=== PATIENT | male | born 1975 ===

== ENCOUNTER 2022-01-22 13:07 | Day surgery (SDC) | payer BC, OTHER ==
[~2022-01-22] VITALS: Ht 177.8 cm; Wt 92.1 kg
[2022-01-22] VITALS (7 sets, daily range): BP systolic 98–139; BP diastolic 55–90
[2022-01-22] MEDS ORDERED: LACTATED RINGERS 1,000 ML IV ONE (13:20)
[2022-01-22] MEDS ORDERED: LACTATED RINGERS 1,000 ML IV STA (13:22)
[2022-01-22] MEDS ORDERED: PROPOFOL INJECTION 50 ML IV ONE (13:48)
[2022-01-22] MEDS ORDERED: MIDAZOLAM 2 MG/2 ML (VERSED) VIAL ONE (13:48)
--- NOTE | 2022-01-22 14:31 | Progress Note-Post Operative ---
Post-Operative Progess Note Surgeon (s)/Senior Advisor (s) Surgeon CY COOMBS DO Senior Advisor: na Pre-Operative Diagnosis screening colonoscopy Post-Operative Diagnosis rectal polyp Procedure & Operative Findings Date of Procedure 01/22/22 Procedure Performed/Findings colonoscopy c cold biopsy polypectomy Anesthesia Type per vp client services Estimated Blood Loss Estimated blood loss (mL): none Specimens/Packing Specimens Removed rectal polyp CY COOMBS DO January 22, 2022 14:31
--- NOTE | 2022-01-22 14:32 | Discharge Inst-Simple/Standard ---
Discharge Inst-Standard Discharge Medications New, Converted or Re-Newed RX: RX on Chart Patient Instructions/Follow Up Plan of Care/Instructions/FU: 2 weeks Aamir Activity as Tolerated: Yes Discharge Diet: Regular Diet CY COOMBS DO January 22, 2022 14:32
--- NOTE | 2022-01-22 14:52 | Anesthesia-General Post-Op ---
MAC Patient Condition Mental Status/LOC: Same as Preop Cardiovascular: Satisfactory Nausea/Vomiting: Absent Respiratory: Satisfactory Pain: Controlled Complications: Absent Post Op Complications Complications None Follow Up Care/Instructions Patient Instructions None needed. Anesthesiology Discharge Order Discharge Order Patient is doing well, no complaints, stable vital signs, no apparent adverse anesthesia problems. No complications reported per nursing. PAOLA LAURA DO January 22, 2022 14:52
--- NOTE | 2022-01-23 00:13 | OPERATIVE REPORT ---
DATE OF SERVICE: 01/22/2022 PREOPERATIVE DIAGNOSIS: Screening colonoscopy. POSTOPERATIVE DIAGNOSIS: Small rectal polyp. PROCEDURE: Colonoscopy with cold biopsy polypectomy x1. SURGEON: Cy Rutledge DO ANESTHESIA: Per MDA. ESTIMATED BLOOD LOSS: None. COMPLICATIONS: None. INDICATIONS: The patient is a 46-year-old male needing screening colonoscopy. He understands risks and benefits of procedure and wished to proceed. Consent was signed in the chart. DESCRIPTION OF PROCEDURE: The patient was taken to endoscopy suite, placed in left lateral recumbent position. Timeout was performed. Digital rectal exam was performed. No palpable polyps, masses or ulcerations. Scope was inserted in the rectum and advanced all the way to cecum with minimal difficulty. Prep was adequate. Scope was slowly retracted back. No polyps, masses or ulcerations in the cecum, ascending, transverse, descending and sigmoid colon. In the rectum, a very small polyp was present, which cold biopsy polypectomy was performed. Scope was retroflexed noting no other pathology. Scope was returned to its normal position, slowly withdrawn until completely removed. The patient tolerated procedure well without any complications, taken to recovery room in stable condition. RECOMMENDATIONS: The patient will recommend repeat colonoscopy in 5 years. Any issues before that be seen at that time. The patient will follow up on pathology. Job ID: [id number] DocumentID: [id number] Dictated Date: 01/22/2022 14:37:14 Septic Technician Date: 01/23/2022 00:13:05 Dictated By: CY RUTLEDGE DO
== END 2022-01-22 15:00 | disposition home or self-care (01) ==
LOC: ENDO 13:07 → MERGE 13:07 → UNMERGE 13:07 → ENDO 15:00
PROVIDERS: ATTEND Surgery
DX: Z12.11 Encounter for screening for malignant neoplasm of colon (principal); K62.1 Rectal polyp; Z28.310 Unvaccinated for COVID-19
CPT/HCPCS: 88305